=== PATIENT | female | born 2005 | race Caucasian/White ===

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

== ENCOUNTER 2025-01-14 13:20 | Emergency (ER) | payer OTHER, SELFPAY ==
--- NOTE | ~2025-01-14 | XR_ITS ---
CLINICAL HISTORY: sob, chest pain Two views of the chest. COMPARISON: XR chest dated 11/09/24 at 17:46 EST FINDINGS: Normal heart and mediastinal contours. No consolidation. No pleural effusion or pneumothorax. No fracture identified. Mild apex left curvature of the midthoracic spine. IMPRESSION: 1. No consolidation. This document has been electronically signed by: Eebr Bae MD on 01/14/2025 14:12:32
--- NOTE | 2025-01-14 13:33 | ED_ITS ---
HPI - SOB/Dyspnea General Chief Complaint: Dizziness Stated Complaint: sob, headache Time Seen by Provider: 01/14/25 13:39 Source: patient Mode of arrival: ambulatory Limitations: no limitations History of Present Illness ED Provider: Gifty Alvarado PA-C HPI Narrative: Patient is a 19 year old female with no known past medical history who presents to the ER with complaints of shortness of breath, chest pain, and syncope. She states that 2 days ago she was lying in bed when she began experiencing sudden onset difficulty breathing and chest pain shortly after. She states the chest pain is left sided, sharp, worse within inspiration, and nonradiating. She states that yesterday her friend witnessed her pass out at home while seated but she does not recall this. States she feels lightheaded upon standing. She also endorses some abdominal discomfort with multiple episodes of vomiting and an inability to keep down food. She denies fevers, cough, dysuria, hematuria, diarrhea, constipation. MD elicited complaint: shortness of breath and chest pain Onset (ago): day(s) Timing: constant Relieving factors: nothing Associated symptoms: chest pain, nausea/vomiting and lightheadedness Related Data Allergies Allergy/AdvReac Type Severity Reaction Status Date / Time No Known Allergies Allergy Verified 01/14/25 13:37 Review of Systems Constitutional: Constitutional: Reports no additional constitutional complaints, Denies chills, Denies fever(s) and Denies night sweats Eyes: Eyes: Reports no additional eye complaints, Denies blurry vision, Denies change in vision, Denies diplopia, Denies eye discharge, Denies loss of vision and Denies eye pain ENT: Reports dizziness Cardiovascular: Cardiovascular: Reports no additional cardiovascular complaints, Reports chest pain, Reports syncope (yesterday), Reports lightheadedness and Reports dyspnea Respiratory: Respiratory: Reports no additional respiratory complaints and Reports dyspnea Gastrointestinal: Gastrointestinal: Reports no additional gastrointestinal complaints, Denies abdominal pain, Denies melena, Denies hematochezia, Denies change in bowel habits and Denies change in stool character Genitourinary: Genitourinary: Denies hematuria, Denies urinary frequency, Denies dysuria, Denies urinary incontinence, Denies urinary hesitancy and Denies urinary urgency Musculoskeletal: Musculoskeletal: Reports no additional musculoskeletal complaints, Denies numbness and Denies tingling Neurologic: Reports dizziness, Reports syncope (yesterday), Denies loss of vision, Denies numbness and Denies tingling Psychiatric: Psychiatric: Reports no additional psychiatric complaints Endocrine: Endocrine: Reports no additional endocrine complaints Hematologic/Lymphatic: Hematologic/Lymphatic: Reports no additional hematologic/lymphatic complaints Allergic/Immunologic: Allergic/Immunologic: Reports no additional allergic/immunologic complaints PMFSH Past Medical History Attestation statement: The following information was validated with the patient. Source: old records reviewed and nursing notes reviewed Social History Social History Advance Directives: No Advance Directives Information Provided: Yes Physical Exam 2 Vital Signs: Vital Signs: Last Vital Signs Temp 98.2 F 01/14/25 14:29 Pulse 74 01/14/25 14:29 Resp 16 01/14/25 14:29 BP 116/80 01/14/25 14:29 Pulse Ox 98 01/14/25 14:29 O2 Del Method Room Air 01/14/25 14:29 BMI result Body Mass Index 19.9 Const: General: cooperative, no acute distress, alert and awake Nutritional Appearance: well nourished Orientation/consciousness: patient oriented x3 Limitations: no limitations HEENT: Head: Yes normal to inspection and Yes atraumatic Ears: hearing grossly normal bilaterally and external ears normal General nose exam: Normal external nose present, no nasal discharge noted and no epistaxis Face and sinus: Yes normal facial exam, No abrasion and No laceration Mouth: Normal oral and palatal mucosa present, no drooling and no muffled voice Eyes: General: appearance normal, both eyes and all related structures Periorbital: periorbital findings normal Eyelids: Yes eyelids normal Conjunctivae: conjunctivae normal Pupils: Equal, round and reactive pupils present EOM: EOMs intact bilaterally Neck: Neck: Yes normal visual inspection, Yes full ROM and Yes no lymphadenopathy Chest: Chest palpation & inspection: normal inspection of the chest Resp: Effort & Inspection: normal respiratory effort and able to speak in complete sentences Auscultation: clear to auscultation bilaterally Cardio: Heart sounds: S1 abnormal, S2 abnormal, no gallops, Murmur heart sound present and no rubs GI: Inspection: Yes normal to inspection Neuro: General: patient oriented x3, moves all extremities and CN's II-XI intact bilaterally Cranial nerves: Yes Equal, round and reactive pupils present Cognition (Neuro): normal cognition Extrem: General: Yes normal to inspection, Yes full ROM and Yes capillary refill normal Psych: Appearance: grossly normal Mental Status: mental status grossly normal Affect: normal affect Attitude: cooperative Thought process: Normal thought process present Thought content: Normal thought content present Insight: Good insight present (Psych) Course Course Course Narrative: This is a Rapid Medical Examination (RME) performed by Ramona Kaur PA-C in triage. Full HPI, ROS, assessment and treatment plan per primary provider in the Main ED. 19 yo female with no medical history presents to the ER for evaluation of SOB for the last 2 days. She reports dizziness and fainting episode while sitting yesterday yesterday. Poor PO intake with recurrent vomiting. Reports left sided sharp chest pain which is constant and nonradiating. tachycardic low 100s in triage, lungs are CTAB. Plan: CXR, EKG, labs, viral swab, orthostatic VS. additional workup as needed per primary provider Medical Decision Making Medical Decision Making MDM Narrative: Patient is a 19 year old assigned female at with no reported medical history presenting to the emergency department today with chest pain, shortness of breath, and possible syncopal episode. Patient's physical exam was as noted in the physical exam portion of this note. Patient's EKG was unremarkable. Patient's chest x-ray showed no acute process. Patient abruptly decided to leave the department against medical advice. Patient stated that she no longer wanted to be in the department and wants to leave. Patient states that she does not want her blood drawn and does not want any additional testing or treatment. I explained to the patient that I recommend she stay to receive IV fluids and have a CBC and CMP done. Patient declined, requesting to leave. I explained to the patient that leaving against medical advice could result in permanent disability, a decrease in quality of life, , stoke, heart attack, etc. Patient verbalized understanding and stated that she would like to leave against medical advice. Patient declined to wait for the AMA form to sign. Differential Diagnosis Differential Diagnoses: The differential diagnosis associated with the presentation includes Orthostatic hypotension Dizziness NSTEMI STEMI Admission/Observation Consideration of admission/observation: Escalation of care including admission/observation considered Patient may have been admitted to the hospital if her work up was consistent with a reason for admission and she had not left against medical advice. Independent Interpretation I performed an independent interpretation of an: EKG and Plain X-Ray Interpretation: My interpretation is in agreement with the radiologist's impression of this imaging study. CLINICAL HISTORY: sob, chest pain Two views of the chest. COMPARISON: XR chest dated 11/09/24 at 17:46 EST FINDINGS: Normal heart and mediastinal contours. No consolidation. No pleural effusion or pneumothorax. No fracture identified. Mild apex left curvature of the midthoracic spine. IMPRESSION: 1. No consolidation. This document has been electronically signed by: Eber Bae MD on 01/14/2025 14:12:32 Dictated By: Eber Bae MD Signed By: Electronically signed by Eber Bae MD 01/14/25 1413 I independently interpreted this EKG and am in agreement with the below findings: Vent. Rat:e 88 BPM Atrial Rate: 88 BPM P-R Int: 128 ms QRS Dur: 80 ms QT Int: 338 ms P-R-T Axes: 41 77 66 degrees QTcB Int: 408 ms Normal sinus rhythm with sinus arrhythmia Normal ECG When compared with ECG of 09-Nov-2024 15:06, No significant change was found DD/ [id number] Radiology Impression Discussion of test interpretation with radiology: I have reviewed the radiologist's reading. Discharge Plan Discharge Clinical Impression: Chest pain, Shortness of breath Patient Disposition: Left Against Medical Advice Stand Alone Forms: Against Medical Advice Interventions: ED Discharge Assessment Last Done: 01/14/25 14:29 Discharge Date/Time: 01/14/25 14:30 Print Language: Yoruba
[2025-01-14 13:34] VITALS: BP 121/86; PULSE 107; RESP 16; TEMP 37.3; O2SAT 99; BMI 19.9
--- NOTE | 2025-01-14 13:35 | ECG_ITS ---
Test Reason : syncope, chest pain Blood Pressure : */* mmHG Vent. Rate : 88 BPM Atrial Rate : 88 BPM P-R Int : 128 ms QRS Dur : 80 ms QT Int : 338 ms P-R-T Axes : 41 77 66 degrees QTcB Int : 408 ms Normal sinus rhythm with sinus arrhythmia Normal ECG When compared with ECG of 09-Nov-2024 15:06, No significant change was found Referred By: Cecy Kaur Electronically Signed By: Vladimir Dasilva
[2025-01-14 14:16] VITALS: BP 116/80; PULSE 74; RESP 16; TEMP 36.8; O2SAT 98
[2025-01-14 14:29] VITALS: BP 116/80; PULSE 74; RESP 16; TEMP 36.8; O2SAT 98
== END 2025-01-14 14:30 | disposition left against medical advice (07) ==
PROVIDERS: Emergency Provider Emergency Medicine
DX: R07.9 Chest pain, unspecified (principal); R06.02 Shortness of breath; R11.2 Nausea with vomiting, unspecified; R42 Dizziness and giddiness; Z53.29 Procedure and treatment not carried out because of patient's decision for other reasons
CPT/HCPCS: 71046; 93005; 99283; 99284

== ENCOUNTER → 2025-01-14 13:35 | Outpatient (BNV) | payer OTHER, SELFPAY | PROVIDERS: Emergency Provider Emergency Medicine; Visit Provider Radiology Diagnostic Radiology | DX: R06.02 Shortness of breath (principal); R07.9 Chest pain, unspecified | CPT/HCPCS: 71046 ==

== ENCOUNTER → 2025-01-14 13:35 | Outpatient (BNV) | payer OTHER, SELFPAY | PROVIDERS: Emergency Provider Emergency Medicine; Visit Provider Internal Medicine Cardiovascular Disease | DX: R07.9 Chest pain, unspecified (principal); R55 Syncope and collapse | CPT/HCPCS: 93010 ==

== ENCOUNTER 2025-09-11 15:16 | Inpatient (IN) | payer OTHER, SELFPAY ==
--- NOTE | ~2025-09-11 | CT_ITS ---
EXAMINATION: CT HEAD WITHOUT CONTRAST CLINICAL INFORMATION: found on ground COMPARISON: None available. TECHNIQUE: Contiguous axial imaging was performed from the skull base to vertex without intravenous administration of contrast. This CT examination was performed using dose optimization techniques as appropriate, variously including the following: *Automated exposure control *Adjustment of mA and/or kV according to patient size (this includes techniques or standardized protocols for targeted exams where dose is matched to indication/reason for exam; i.e. extremities or head) *Use of iterative reconstruction technique FINDINGS: There is no acute ischemic change. There is no intracranial hemorrhage. There is no mass-effect or midline shift. Basal cisterns and ventricles are within normal limits for age/cerebral volume. Orbits are symmetrical and unremarkable. Paranasal sinuses and mastoid air cells are pneumatized. There are no bony abnormalities. CT/CT head/brain wo IV con IMPRESSION: No acute intracranial abnormality. Electronically signed by: Dirk Ibarra MD 09/11/2025 05:09 PM [facility]
[2025-09-11 15:12] VITALS: BP 137/88; PULSE 111; O2SAT 98
[2025-09-11 15:19] VITALS: BP 120/68; PULSE 78; RESP 15; O2SAT 100; BMI 19.5
--- NOTE | 2025-09-11 15:36 | ECG_ITS ---
Test Reason : overdose Blood Pressure : */* mmHG Vent. Rate : 93 BPM Atrial Rate : 93 BPM P-R Int : 114 ms QRS Dur : 70 ms QT Int : 336 ms P-R-T Axes : 14 76 59 degrees QTcB Int : 417 ms Normal sinus rhythm Normal ECG When compared with ECG of 14-Jan-2025 13:46, No significant change was found Referred By: Eduarda Coy Electronically Signed By: MIRTA GATICA MD
[2025-09-11 16:20] LABS: MANUAL DIFF FLAG NO
[2025-09-11 16:21] LABS: Hematocrit 36.9 % (37.0-47.0); Hemoglobin 12.6 g/dl (12.0-16.0); Imm Gran Abs Auto 0.03 X10*3/uL (0.00-0.03); Imm Gran Pct Auto 0.3 % (0.0-0.4); Lymphocytes Absolute Auto 0.9 X10*3/uL (1.2-4.9); Mean Corpuscular HGB Conc 34.1 g/dl (31.0-35.0); Mean Corpuscular Hemoglobin 28.4 pg (27.0-33.0); Mean Corpuscular Volume 83.1 fL (80.0-98.0); NRBC Abs Auto 0.000 X10*3/uL (0.0-0.012); NRBC Pct Auto 0.0 /100WBC (0.0-0.2); Platelet Count 280 X10*3/uL (160-400); Red Blood Count 4.44 X10*6/uL (4.20-5.50); White Blood Count 11.9 X10*3/uL (4.8-10.8)
[2025-09-11 16:39] LABS: Acetaminophen LAB 3 mcg/mL (<30); Salicylate < 5.0 mg/dL (15-30)
[2025-09-11 16:48] LABS: Alanine Aminotransferase 16 U/L (0-31); Albumin Level 5.4 g/dL (3.5-5.0); Alkaline Phosphatase 52 U/L (39-117); Anion Gap 16 (12-20); Aspartate Amino Transferase 22 U/L (5-31); Blood Urea Nitrogen 18 mg/dL (9-16); Calcium 9.9 mg/dL (8.4-10.2); Carbon Dioxide 21 mmol/L (22-29); Chloride 106 mmol/L (96-108); Creatinine Clr Calc Pharmacy 78.5; Estimated Glomerular Filt Rate > 60; Lipase 17 U/L (8-78); Magnesium 1.8 mg/dL (1.6-2.6); Potassium 3.6 mmol/L (3.3-5.1); Sodium 139 mmol/L (135-145); Total Protein 7.9 g/dL (6.5-8.0)
--- NOTE | 2025-09-11 17:05 | ED.OVERDOSE ---
HPI - Overdose General Chief Complaint: Overdose Stated Complaint: S12,OD S/P RECENT BREAKUP W/BF,NARCAN GIVEN Time Seen by Provider: 09/11/25 15:24 Source: patient Mode of arrival: ambulatory Limitations: no limitations History of Present Illness ED Provider: СВЕТЛАНА VALLE PA-C HPI Narrative: 20 year old female BIBA for concerns of overdose. Per EMS, patient's mother found her slumped over on the bathroom floor at home this afternoon with a suicide note lying beside her. On arrival, patient somnolent however responsive to verbal stimuli. When asked if she was attempting to end her life, she states yes, due to a recent break up. Endorses history of similar attempts at her life. When asked what medications she took, she tells me she is unsure. Took medications out of the medicine cabinet at home. On chart review, it does not appear that she is prescribed any medications. She lives with her mother. I spoke with her mother, Nicci, who states she found an empty bottle of aspirin last night. She states there were only 5-6 tabs of 81mg aspirin left in the bottle. She threw the bottle away and did not think anything of it. She states the other medication in the cabinet at home include tylenol, tylenol PM, generic pain control , and melatonin. She has not noticed any of these medications missing. Patient is not particularly willing to participate in history. She received a total of 8 mg IV narcan en route to ED. Related Data Home Medications ?Medication ?Instructions ?Recorded ?Confirmed No Known Home Meds 09/11/25 09/11/25 Allergies Allergy/AdvReac Type Severity Reaction Status Date / Time No Known Allergies Allergy Verified 09/11/25 15:23 Review of Systems Review of Systems: Yes all other systems are reviewed and are negative PMFSH Past Medical History Attestation statement: The following information was validated with the patient. Source: old records reviewed and nursing notes reviewed Social History Social History Advance Directives: No Advance Directives Information Provided: No Do you have a plan to hurt others: No Plan Patient : No Physical Exam Vital Signs: Vital Signs: Last Vital Signs Temp 97.2 F 09/12/25 14:27 Pulse 85 09/12/25 14:27 Resp 16 09/12/25 14:27 BP 124/68 09/12/25 14:27 Pulse Ox 99 09/12/25 14:27 O2 Del Method Room Air 09/12/25 14:27 BMI result Body Mass Index 19.5 vital signs stable General: somnolent, responsive to verbal stimuli Skin: Warm, dry, intact. No rashes or lesions. Head: Normocephalic, atraumatic. no palpable skull fractures, hematoma. EENT: Hearing is intact b/l. Conjunctiva clear. pupils dilated b/l, equal, round, reactive to light. EOM intact. Moist mucous membranes.? Neck: Supple without LAD Cardiac: Chest wall symmetric. RRR Lungs: Normal respiratory effort without accessory muscle use. CTA bilaterally Abdomen: Soft, non-tender, non-distended. No rebound tenderness or guarding. Positive BS x4. Back: No midline spinous or paraspinal tenderness. No step off deformity. Ext: Upper and lower extremities atraumatic, without tenderness, deformity, swelling or erythema Neuro: AOx3. CN 2-12 grossly intact. Course Course Course Narrative: CBC showing slight leukocytosis to 11.9 with left shift. likely reactive. h&h stable. chemistry without acute electrolyte abnormality requiring intervention. no felicitas. random glucose 118, no anion gap. total bilirubin 2.3, priors elevated as well (1.8). all other liver enzymes wnl. her abdominal exam is benign, no vomiting. beta quant undetectable. Salicylates, acetaminophen, ethanol undetectable. CT head without intracranial abnormality. EKG showing normal sinus rhythm, no QT prolongation. > UA/UDS pending > pending CARE team consultation > vitals stable at this time. patient is lying in bed comfortably, her mom/dad/sibling are at bedside speaking with her. Reevaluation(s) Reevaluation #1: Time: 08:29 Date: 09/12/25 Provider: Taras Aquino, DO Patient in physician observation for psychiatric evaluation.? No acute events reported overnight. No current complaints. VS stable.? pending CARE team evaluation. Will continue to monitor. Medical Decision Making Medical Decision Making MDM Narrative: 20 year old female BIBA for concerns of overdose. Differential diagnosis includes anemia, electrolyte abnormality, mood disorder, anxiety, depression, SI, polysubstance abuse, overdose Presentation not consistent with acute organic causes to include delirium, dementia or drug induced disorders (acute ingestions or withdrawal; no evidence of toxidrome).? Plan: labs, EKG, ASA/APAP levels, ETOH level, UDS, care team consultation, reassessment Differential Diagnosis Differential Diagnoses: The differential diagnosis associated with the presentation includes as above. Admission/Observation Consideration of admission/observation: Escalation of care including admission/observation considered Lab Data MDM Lab Attestation statement: I reviewed the patient's lab results. as above. 09/11/25 16:16 09/11/25 16:16 Labs: Lab Results 09/11/25 09/11/25 Range/Units 16:16 18:07 WBC 11.9 H (4.8-10.8) X10*3/uL RBC 4.44 (4.20-5.50) X10*6/uL Hgb 12.6 (12.0-16.0) g/dl Hct 36.9 L (37.0-47.0) % MCV 83.1 (80.0-98.0) fL MCH 28.4 (27.0-33.0) pg MCHC 34.1 (31.0-35.0) g/dl RDW 13.0 (11.0-16.0) % Plt Count 280 (160-400) X10*3/uL MPV 9.5 (9.4-12.3) fL Immature Gran % (Auto) 0.3 (0.0-0.4) % Neut % (Auto) 89.0 H (45-73) % Lymph % (Auto) 7.6 L (20-40) % Anson % (Auto) 2.7 (2-11) % Eos % (Auto) 0.1 (0-4) % Baso % (Auto) 0.3 (0-2) % Lymph # (Auto) 0.9 L (1.2-4.9) X10*3/uL Anson # (Auto) 0.3 (0.1-1.2) X10*3/uL Eos # (Auto) 0.0 (0.0-0.4) X10*3/uL Baso # (Auto) 0.0 (0.0-0.2) X10*3/uL Abs Immat Gran (auto) 0.03 (0.00-0.03) X10*3/uL Absolute Neuts (auto) 10.6 H (2.0-8.3) x10*3/uL Absolute Nucleated RBC 0.000 (0.0-0.012) X10*3/uL Nucleated RBC % (auto) 0.0 (0.0-0.2) /100WBC Sodium 139 (135-145) mmol/L Potassium 3.6 (3.3-5.1) mmol/L Chloride 106 (96-108) mmol/L Carbon Dioxide 21 L (22-29) mmol/L Anion Gap 16 (12-20) BUN 18 H (9-16) mg/dL Creatinine 0.90 (0.5-1.4) mg/dL Estim Creat Clear Calc 78.5 Estimated GFR > 60 Random Glucose 118 H (60-115) mg/dL Calcium 9.9 (8.4-10.2) mg/dL Magnesium 1.8 (1.6-2.6) mg/dL Total Bilirubin 2.3 H (0.0-1.0) mg/dL AST 22 (5-31) U/L ALT 16 (0-31) U/L Alkaline Phosphatase 52 (39-117) U/L Total Creatine Kinase 108 (26-140) U/L Total Protein 7.9 (6.5-8.0) g/dL Albumin 5.4 H (3.5-5.0) g/dL Lipase 17 (8-78) U/L Beta HCG, Quant < 2 mIU/mL Urine Color Yellow Urine Appearance Clear Urine pH 5.5 (5.0-9.0) Ur Specific [place] 1.020 (1.005-1.025) Urine Protein 30 (1+) H (Neg-Trace) mg/dL Urine Glucose (UA) Negative (Negative) mg/dL Urine Ketones 80 (Negative) mg/dL Urine Blood Trace H (Negative) Urine Nitrite Negative (Negative) Ur Leukocyte Esterase Negative (Negative) Urine RBC 0-2 (0-2) /HPF Urine WBC 6-10 H (0-5) /HPF Ur Squamous Epith Cells 11-20 (0-2) /HPF Urine Bacteria 3+ (None Seen) Hyaline Casts 0-2 (0-2) /LPF Salicylates < 5.0 L (15-30) mg/dL Urine Opiates Screen Not Detected (Not Detect) Ur Buprenorphine Scrn Not Detected (Not Detect) ng/mL Ur Oxycodone Screen Not Detected (Not Detect) ng/mL Urine Methadone Screen Not Detected (Not Detect) ng/mL Urine Fentanyl Screen Not Detected (Not Detect) Acetaminophen 3 (<30) mcg/mL Ur Barbiturates Screen Not Detected (Not Detect) Ur Phencyclidine Scrn Not Detected (Not Detect) Ur Amphetamines Screen Not Detected (Not Detect) U Benzodiazepines Scrn Not Detected (Not Detect) Urine Cocaine Screen Not Detected (Not Detect) U Marijuana (THC) Screen POSITIVE H (Not Detect) Ethyl Alcohol < 10 mg/dL Independent Interpretation I performed an independent interpretation of an: EKG Interpretation: EKG showing normal sinus rhythm, rate of 93 beats per minute, QT 336, QTC 417, no acute ischemic changes or st elevations Independent Historian Clinical information obtained from an independent historian. History obtained from or confirmed by: Parent and EMS Social Determinants Patient?s care significantly limited by Social Determinants of Health including: Other Social Determinant of Health Critical Care Time Critical Care Time Critical Care Time: No Discharge Plan Discharge Clinical Impression: Suicidal ideation, Suicide attempt, Intentional drug overdose Patient Disposition: Admitted As Inpatient Interventions: Admission Worksheet (ED) Last Done: 09/12/25 12:50 Discharge Date/Time: 09/12/25 12:51
--- OUTSIDE RECORDS SUMMARY | 2025-09-11 17:19 | XMS_ITS | Clinical Summary ---
Author Organization [facility] Address [address] [place] [address] Phone Care Team Providers Care Concrete Pavement Installer Name Role Phone Unavailable Primary Care Provider Unavailabl e Allergies Active Allergy Reactions Criticality Noted Date Comments Fluoride Rash Low 08/04/2022 Mild/moderate Medications No known medications Active Problems Problem Noted Date Diagnosed Date Oral contraceptive use 02/14/2024 Assessment & Plan (02/14/2024 2:34 PM EDT): Recently started OCP- not sure which one Rx'd through [facility] Attention deficit hyperactiv ity disorder (ADHD), predominantly inattentive type 08/04/2022 Overview (08/04/2022): Previously took Concerta Assessment & Plan (02/14/2024 2:34 PM EDT): No medications Assessment & Plan (02/09/2023 4:36 PM EDT): Managing without medication Immunizations Immunization Administration Dates Next Due COVID-19 shanel Weir, 12+ years 07/04/2021,06/13/2021 DTaP 2005,2005 HPV Vaccine 9 Valent 06/02/2017,10/08/2016 Hep A, ped/adol 10/09/2008,06/03/2007 Hep B, ped/adol 2005, 5,2005,05/03 HiB 07/28/2006, 6,2005,07/07 IPV 07/17/2009,200 6,2005,07/07 Influenza, injectable,hadley valent, preservative free, pediatric 10/13/2021,10/08/2016,09/26/2014,10/07,08/27/2009,07/17/2009 MMR 07/17/2009,07/28/2006 Meningococcal Conj (Menactra) MCV4P 10/08/2016 Meningococcal Conj (Menquadfi) MCV4TT 02/09/2023 Pneumococcal Conjugate 13-Valent 006,2005,2005,07/07 Tdap 10/08/2016 Varicella 07/17/2009,07/28/2006 Family History Medical History Relation Name Comments Hyperlipidemia Father Chirag Hypertension Maternal Grandmother No Known Problems Mother Pardeep No Known Problems Paternal Grandmother Relation Name Status Comments Father Chirag Alive Maternal Grandfather Maternal Grandmother Alive Mother Evelym Alive Paternal Grandmother Alive Social History Tobacco Use Types Packs/Day Years Used Date Smoking Tobacco: Never Assessed Hunger/Food Answer Date Recorded In the last 12 months, did y ou or your family ever eat less than you felt you should because there wasn't enough money for food? No 02/14/2024 Stable Housing Answer Date Recorded Are you worried that in the next 2 months you may not have stable housing? No 02/14/2024 Transportation Concerns Answer Date Rec orded In the last 12 months, have you or your family ever had to go without healthcare because you didn't have a way to get there? No 02/14/2024 Hazards in Home Answer Date Recorded Think about the place you li ve. Do you have problems with any of the following? Pests (mice or roaches), mold, no/not working smoke detectors, water leaks, no window guards. No 2023 Financing Utilities Answer Date Recorde d In the last 12 months, has t he electric, gas, oil, or water company threatened to shut off your services in your home? No 02/14/2024 Safety at Home Answer Date Recorded Are you or your family worried about feeling saf e in your home? No 02/14/2024 Outside Support Answer Date Recorded Do you feel that you need mo re support from other people or programs to help you care for yourself or your family? No 02/14/2024 Understanding Health Concerns Answer Da te Recorded Do you need help understandi ng your or your child's healthcare needs (diagnosis, medications, plan, etc.)? No 02/14/2024 Financing Health Concerns Answer Date R ecorded In the last 12 months, was t here a time when your child needed to see a doctor or get medications or supplies but could not because of cost? No 02/14/2024 Missing School or Work Answer Date Soren rded Did you or your child miss s chool or work because of a health problem that could have been avoided? No 02/14/2024 Child Education Answer Date Recorded Do you have concerns about y our/your child's learning or behavior in school, preschool, or daycare? No 02/14/2024 Comments No Sex and Gender Information Value Date Recorded Sex Assigned at Not on file Legal Sex Female 3:41 PM EDT Gender Identity Female 09/06/2024 9:17 AM EST Sexual Orientation Not on file Last Filed Vital Signs Vital Sign Reading Time Taken Comments Blood Pressure 102/64 02/14/2024 2:05 PM EDT Pulse 78 02/14/2024 2:05 PM EDT Temperature 37.5 C (99.5 F) 02/14/2024 2:05 PM EDT Respiratory Rate - - Oxygen Saturation - - Inhaled Oxygen Concentration - - Weight 49 kg (108 lb) 02/14/2024 2:05 PM EDT Height 154.5 cm (5' 0.83 ) 02/14/2024 2:05 PM ED T Body Mass Index 20.52 02/14/2024 2:05 PM EDT Plan of Treatment Health Maintenance Due Date Last Done Comments Men B Vaccine (1 of 2 - Standard) 2021 Influenza Vaccines (#1) 2025 10/13/20 21, 10/08/2016, 09/26/2014, Additional history exists COVID-19 Vaccine (3 - 2024-2 6 season) 2025 07/04/2021, 06/13/2021 DTaP,Tdap,and Td Vaccines (4 - Td or Tdap) 10/08/2026 10/08/2016, 2005, 2005 Hepatitis B Vaccines Completed 2005, 2005, 2005, Additional history exists HIB Vaccines Completed 07/28/2006, 12/2005, 2005, Additional history exists Pneumococcal Vaccine Completed 07/28/2006, 2005, 2005, Additional history exists Hepatitis A Vaccines Completed 10/09/2008, 06/03/20 07 IPV Vaccines Completed 07/17/2009, 12/2005, 2005, Additional history exists MMR Vaccines Completed 07/17/2009, 07/28/2006 Varicella Vaccines Completed 07/17/2009, 07/28/2006 HPV Vaccines Completed 06/02/2017, 10/08/2016 Meningococcal Vaccine Completed 02/09/2023, 016 Procedures * Due to [place] law, this organization might not be sharing sensitive test results. Procedure Name Priority Date/Time Associated Diagnosis Comments CHLAMYDIA GC AMP PROBE Routine 02/09/2023 4:03 PM EDT Encounter for screening examination for sexually transmitted disease from Last 3 Months or Most Recently Relevant to Health Maintenance Results * Due to [place] law, this organization might not be sharing sensitive test results. * Chlamydia and Gonorrhoea, Amplified (Vagina) (02/09/2023 4:03 PM EDT) Chlamydia Trachomatis, Amplified NEGATIVE (NEG) [facility] Comment: No Chlamydia Trachomatis RNA detected in this patient's sample (REFERENCE RANGE/NORMAL VALUE: NOT DETECTED) Note: This test uses sanitation technician- mediated amplification method to detect rRNA from C. Trachomatis N.GONORRHOEAE AMP PROBE NEGATIVE (NEG) [facility] Comment: No Neisseria Gonorrhoeae RNA detected in this patient's sample (REFERENCE RANGE/NORMAL VALUE: NOT DETECTED) NOTE: This test uses sanitation technician-mediated amplification method to detect rRNA from N.Gonorrhoeae. A negative result does not preclude infection. In the case of a negative urine result, testing of an endocervical(female) or urethral (male) specimen is recommended if there is high clinical suspicion of infection. Due to very high sensitivity of Nucleic Acid Amplification Test, false positive results may occur. Therefore, specimen handling is extremely important. In patients in whom the disease is unlikely, additional sample for testing should be considered after an initial positive result. The performance characteristics of this test have not been evaluated in children. The Aptima Combo2 assay is not intended for the evaluation of suspected sexual abuse or for other medico-legal indications. The ordering provider should assess if the patient had consensual sex without risk of sexual abuse. Consult the [facility] if needed. Contact phone number . Therapeutic failure or success cannot be determined with the Aptima Combo2 assay since nucleic acid may persist following appropriate antimicrobial therapy. The Centers for Disease Control and Prevention (CDC) recommends confirmatory retesting using culture or a different nucleic acid amplification test when positive results occur, if indicated. CHLAM/GC AMP PROBE SPEC TYPE CERVIX [facility] Comment: Testing performed or reported by [facility], a Service of [facility], [facility] [address], [place] [address] Austyn Espinoza MD, Supervisor Title [facility]# [id number] Swab (Vagina) 02/09/2023 4:0 3 PM EDT 02/09/2023 10:43 PM EDT us Yovana Uriarte NP LAB MICROBIOLOGY - GENERAL ORDER JUDAH Final Result [facility] from Last 3 Months or Most Recently Relevant to Health Maintenance
[2025-09-11 18:15] LABS: Appearance Urine Clear; Glucose Urine UA Negative (Negative); PH 5.5 (5.0-9.0); Specific Gravity - Urine 1.020 (1.005-1.025); UMIC TRIGGER UACC YES
[2025-09-11 18:18] LABS: UACC Culture Trigger YES
[2025-09-11 18:34] VITALS: BP 112/62; PULSE 63; RESP 18; O2SAT 99
--- NOTE | 2025-09-11 19:25 | PC.NURSE ---
family at bedside to visit
[2025-09-11 20:24] LABS: Cannabinoid Screen Urine POSITIVE (Not Detect)
[2025-09-12 06:32] VITALS: BP 128/65; PULSE 60; RESP 15; TEMP 36.4; O2SAT 100
--- NOTE | 2025-09-12 06:39 | PC.NURSE ---
pt resting comfortably throughout the night, no apparent distress noted
--- NOTE | 2025-09-12 07:54 | PC.NURSE ---
Assumed care, report received. pt is currently sleeping, safety is maintained.
--- NOTE | 2025-09-12 10:19 | PHA.MEDREC ---
Addendum entered by Henna Ruiz RPh 09/12/25 10:29: MED REC REVIEWED BY [facility] Original Note: Pharmacy Consult ? Medication Reconciliation Pharmacy has reviewed the medication reconciliation done by nursing. No claim history.
[2025-09-12 14:27] VITALS: BP 124/68; PULSE 85; RESP 16; TEMP 36.2; O2SAT 99
[2025-09-12 14:28] VITALS: BMI 18.1
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
[2025-09-12 20:00] VITALS: BP 121/73; PULSE 72; RESP 16; TEMP 36.8; O2SAT 98
[2025-09-12] MEDS: Magnesium Hydrox/Alum Hydrox 30 ML ORAL.SUSP PO (20:37)
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
--- NOTE | 2025-09-13 08:37 | HO.PM.IMCN ---
History of Present Illness Data of Consult Service Date: 09/13/25 Primary Care Provider: Jean Ang MD [facility] Reason for consult: Medical consult 20-year-old female with past medical history of adjustment reaction, Depression, anxiety disorder, suicidal ideation and intentional drug overdose brought in by ambulance to this emergency room for concerns of an overdose after being found unresponsive in the bathroom. Patient reportedly attempted to end her life due to a recent break-up. patient had an intentional overdose of aspirin and cold medications. Her CBC demonstrated a slight leukocytosis, stable H&H, chemistry without acute electrolyte imbalances, no acute kidney injury, total bilirubin 2.3, previously elevated. All other liver enzymes within normal limits, negative test. CT head without any acute abnormality, EKG was normal without any QT prolongation. U tox positive for marijuana, no EtOH. on exam she denies any medical concerns. Reports that she is not eating well due to being a picky eater. Review of Systems Review of Systems: Denies any shortness of breath, chest pain, headaches, dysuria, abdominal pain or discomfort, nausea, vomiting or diarrhea. Denies fever or chills. [facility] Social History Household Members: Family Housing: House Do you presently have visiting nurse or other home services: No Patient Tobacco Use Status: Never used Tobacco Currently Displaying Signs/Symptoms of Drug Intoxication Withdrawal: No Have you been hit, kicked, punched, or otherwise hurt by someone within the past year? If so, by whom?: No Do you feel safe in your current relationship?: No Current Relationship Is there a partner from a previous relationship who is making you feel unsafe now?: No Are you made to feel afraid or neglected: No Spiritual Healthcare Practices: NONE Mu-Ism Healthcare Practices: NONE Cultural Healthcare Practices: NONE Advance Directives: No Advance Directives Information Provided: No Do you have thoughts of harming others: None Do you have a plan to hurt others: No Plan Recently lost weight without trying: No Nutrition Risks: No Nutritional Risk Patient : No : No Poor oral hygiene: No Meds Allergies Allergy/AdvReac Type Severity Reaction Status Date / Time No Known Allergies Allergy Verified 09/11/25 15:23 Active Medications: Current Medications Acetaminophen (Acetaminophen 325 Mg Tablet) 650 mg PO Q6H PRN PRN Reason: Headache/Pain, Scale 1-10 Last Admin: 09/12/25 20:37 Dose: 650 mg Al Hydroxide/Mg Hydroxide (Magnesium Hydrox/Alum Hydrox 30 Ml Oral.Susp) 30 ml PO Q6H PRN PRN Reason: Heartburn/Nausea Last Admin: 09/12/25 20:37 Dose: 30 ml Hydroxyzine HCl (Hydroxyzine Hcl 25 Mg Tablet) 25 mg PO Q6H PRN PRN Reason: mild anxiety Magnesium Hydroxide (Milk Of Magnesia 30 Ml Oral.Susp) 30 ml PO DAILY PRN PRN Reason: Constipation Nicotine Polacrilex (Nicotine Polacrilex 2 Mg Gum) 4 mg BUCCAL Q2H PRN PRN Reason: Nicotine Cravings Risperidone (Risperidone 0.5 Mg Tablet) 0.5 mg PO BID PRN PRN Reason: agitation Sertraline HCl (Sertraline Hcl 25 Mg Tablet) 25 mg PO DAILY NAOMI Trazodone HCl (Trazodone Hcl 50 Mg Tablet) 50 mg PO BEDTIME MRX1 PRN PRN Reason: Insomnia Last Admin: 09/12/25 20:37 Dose: 50 mg Home Medications ?Medication ?Instructions ?Recorded ?Confirmed ?Last Taken ?Type No Known Home Meds 09/11/25 09/11/25 Unknown History Physical Exam Vital Signs and Narrative: Vital Signs: Last Vital Signs Temp 98.3 F 09/12/25 20:00 Pulse 72 09/12/25 20:00 Resp 16 09/12/25 20:00 BP 121/73 09/12/25 20:00 Pulse Ox 98 09/12/25 20:00 O2 Del Method Room Air 09/12/25 20:00 BMI result Body Mass Index 18.1 Alert and oriented X3, quiet, calm and cooperative. Answers questions. Neuro: CN II-X11 intact, no deficits, visual acuity intact ENT: Hearing intact, MMM Cardiac: S1 S2 RRR, No ectopy Pulmonary: lungs clear to auscultation, No increased WOB. Abdominal: BS active in all 4 quadrants, no guarding or tenderness MSK: Strength 5/5 upper and lower extremities : Deferred Extremities: No edema in lower extremities Psych: Mood stable, Quiet and cooperative. Skin: Warm and dry, Intact Results Labs 09/11/25 16:16 09/11/25 16:16 Assessment and Plan (1) Intentional drug overdose: Status: Acute Plan 20-year-old female with past medical history listed below presented to the ED with intentional overdose. Now admitted inpatient for stabilization. Anxiety/adjustment reaction /suicide ideation/Depression/Anxiety Treatment per psychiatric team Thank you for allowing me to participate in the care of this patient. Will follow with you, please notify medical provider with any changes in condition or concerns.
[2025-09-13 09:05] VITALS: BP 98/58; PULSE 80; RESP 16; TEMP 36.6; O2SAT 98
--- NOTE | 2025-09-13 09:30 | P.PNPSI_ITS ---
Subjective Subjective Date of Service: 09/13/25 Reason For Visit: Depression, SI Subjective Notes: Section 12B Interim History: Chart reviewed, case discussed w/ team PRN use- trazodone 50 mg last night, acetaminophen, Maalox Slept 8 hrs per nursing report T/W met w/ pt in her room this am along with SW. Pt reported feeling okay, denies SI. Slept better. Denied med SE. Started sertraline 25 mg this am. She expressed interest in a therapy referral TW met with pt and her father during his visit, per his request (pt signed consent for me to communicate w/ her parents). He shared that it was quite traumatic to find her after the overdose and he had to do chest compression. He feels like pt is too focused on her friends and ex-bf and wants her focus on herself. Pt was silent and seemed to tune out during our conversation. Dad noted that she was tx'd for ADHD as a kid. Pt states that the meds made her tired and she doesn't want to take an ADHD med again. Dad would like to speak with t/w privately to discuss further concerns and t/w agreed to call him at 10 am tomorrow. Medication Compliance: Yes Mental Status Exam Mental Status Exam Narrative: Appearance: hospital [facility], grooming & hygiene wnl, good eye contact. Lying in position on her bed throughout interview Attitude:Cooperative Speech: Fluent and wnl in regard to volume, tone, prosody Motor activity: Calm and without any tics, tremors or dyskinesias. Mood: anxious about being here Affect: appropriate, reactive, superficially bright Thought process: goal directed and without evidence of formal thought disorder Thought content: denies current SI, regrets overdose. Denies violent ideation Perception: Denies AH/VH and does not appear to respond to internal stimuli Alert/oriented in all spheres Cognition grossly intact Insight: fair Judgment: impaired Diagnostics Vital Signs (24Hr): Vital Signs - 24 hr 09/12/25 14:27 09/12/25 20:00 09/13/25 09:05 Temperature 97.2 F 98.3 F 97.8 F Pulse Rate 85 72 80 Respiratory Rate 16 16 16 Blood Pressure 124/68 121/73 98/58 L Pulse Oximetry 99 98 98 Oxygen Delivery Method Room Air Room Air Room Air BMI result Body Mass Index 18.1 Labs 09/11/25 16:16 09/11/25 16:16 Labs: Laboratory Results - last 48 hr 09/11/25 09/11/25 16:16 18:07 WBC 11.9 H RBC 4.44 Hgb 12.6 Hct 36.9 L MCV 83.1 MCH 28.4 MCHC 34.1 RDW 13.0 Plt Count 280 MPV 9.5 Immature Gran % (Auto) 0.3 Neut % (Auto) 89.0 H Lymph % (Auto) 7.6 L [place] % (Auto) 2.7 Eos % (Auto) 0.1 Baso % (Auto) 0.3 Lymph # (Auto) 0.9 L [place] # (Auto) 0.3 Eos # (Auto) 0.0 Baso # (Auto) 0.0 Abs Immat Gran (auto) 0.03 Absolute Neuts (auto) 10.6 H Absolute Nucleated RBC 0.000 Nucleated RBC % (auto) 0.0 Sodium 139 Potassium 3.6 Chloride 106 Carbon Dioxide 21 L Anion Gap 16 BUN 18 H Creatinine 0.90 Estim Creat Clear Calc 78.5 Estimated GFR > 60 Random Glucose 118 H Calcium 9.9 Magnesium 1.8 Total Bilirubin 2.3 H AST 22 ALT 16 Alkaline Phosphatase 52 Total Creatine Kinase 108 Total Protein 7.9 Albumin 5.4 H Lipase 17 Beta HCG, Quant < 2 Urine Color Yellow Urine Appearance Clear Urine pH 5.5 Ur Specific [place] 1.020 Urine Protein 30 (1+) H Urine Glucose (UA) Negative Urine Ketones 80 Urine Blood Trace H Urine Nitrite Negative Ur Leukocyte Esterase Negative Urine RBC 0-2 Urine WBC 6-10 H Ur Squamous Epith Cells 11-20 Urine Bacteria 3+ Hyaline Casts 0-2 Salicylates < 5.0 L Urine Opiates Screen Not Detected Ur Buprenorphine Scrn Not Detected Ur Oxycodone Screen Not Detected Urine Methadone Screen Not Detected Urine Fentanyl Screen Not Detected Acetaminophen 3 Ur Barbiturates Screen Not Detected Ur Phencyclidine Scrn Not Detected Ur Amphetamines Screen Not Detected U Benzodiazepines Scrn Not Detected Urine Cocaine Screen Not Detected U Marijuana (THC) Screen POSITIVE H Ethyl Alcohol < 10 Imaging Radiology Impressions: ITS Impressions Head CT 09/11/25 16:57 IMPRESSION: No acute intracranial abnormality. Electronically signed by: Dirk Ibarra MD 09/11/2025 05:09 PM [facility] Medications Medications Current Medications Acetaminophen (Acetaminophen 325 Mg Tablet) 650 mg PO Q6H PRN PRN Reason: Headache/Pain, Scale 1-10 Last Admin: 09/12/25 20:37 Dose: 650 mg Al Hydroxide/Mg Hydroxide (Magnesium Hydrox/Alum Hydrox 30 Ml Oral.Susp) 30 ml PO Q6H PRN PRN Reason: Heartburn/Nausea Last Admin: 09/12/25 20:37 Dose: 30 ml Hydroxyzine HCl (Hydroxyzine Hcl 25 Mg Tablet) 25 mg PO Q6H PRN PRN Reason: mild anxiety Ibuprofen (Ibuprofen 600 Mg Tablet) 600 mg PO Q8H PRN PRN Reason: Headache/Pain, Scale 1-10 Magnesium Hydroxide (Milk Of Magnesia 30 Ml Oral.Susp) 30 ml PO DAILY PRN PRN Reason: Constipation Nicotine Polacrilex (Nicotine Polacrilex 2 Mg Gum) 4 mg BUCCAL Q2H PRN PRN Reason: Nicotine Cravings Risperidone (Risperidone 0.5 Mg Tablet) 0.5 mg PO BID PRN PRN Reason: agitation Sertraline HCl (Sertraline Hcl 25 Mg Tablet) 25 mg PO DAILY NAOMI Last Admin: 09/13/25 09:09 Dose: 25 mg Trazodone HCl (Trazodone Hcl 50 Mg Tablet) 50 mg PO BEDTIME MRX1 PRN PRN Reason: Insomnia Last Admin: 09/12/25 20:37 Dose: 50 mg Allergies Allergies Allergy/AdvReac Type Severity Reaction Status Date / Time No Known Allergies Allergy Verified 09/11/25 15:23 Assessment & Plan Assessment & Plan (1) 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 Shook is a 20 yo single F with h/o depression and anxiety who was BIBA following a suicide attempt by overdosing on an unknown quantity of aspirin and cold medication. Pt reports that this was precipitated by her bf breaking up with her and telling her he is seeing someone else. She denies current SI and regrets the attempt. She states that she doesn't want to be in the hospital and is admitted on a 12B. While she is here, pt would like to try medication to help with depression, anxiety and insomnia. Plan: Admitted to M3 for safety and stabilization Legal status- 12B 15 min safety checks Milieu therapy Vitals per unit standards Admission H&P from hospitalist pending Start- hydroxyzine 25 mg q 6 hrs prn for anxiety trazodone 50-100 mg qhs prn for insomnia sertraline 25 mg qd for tx of depression/anxiety. 09/13: Pt tolerated the sertraline and prn trazodone and sleep improved last night. She denies SI. ON 12B that will 09/17. T/W will call pt's dad at 10 am tomorrow to review his concerns further. Pt signed consent Patient educated on: diagnosis, medication risk/benefits and therapeutic strategies Reason for continued inpatient stay Substantial Risk for: med/psych decompensation Time Spent With Patient Time: Total time managing care of this patient today ____ minutes.
[2025-09-13 20:00] VITALS: BP 108/60; PULSE 74; RESP 16; TEMP 36.6; O2SAT 99
[2025-09-14 08:00] VITALS: BP 109/58; PULSE 65; RESP 14; TEMP 36.8; O2SAT 98
--- NOTE | 2025-09-14 10:06 | HO.PSYCHPN ---
Subjective Subjective Date of Service: 09/14/25 Reason For Visit: Depression, SI Interim History: Chart reviewed, case discussed with tx team T/W called pt's home number, spoke w/ her mom (dad had requested a phone call at 10 am). T/W informed pt's mom that pt would be d/c'd on Wednesday when 12B is up if no acute issues arise. she was accepting of the plan. She reports pt gets really down after break-ups. She stated that she and her were home when pt overdosed. Pt had the water running in the bathroom and mom thought she was in the shower. mom went to use the bathroom and noticed pt wasn't answering and she checked on her. Pt was unconscious and EMS and pt's parents called EMS. T/W informed pt's mom that pt has consistently expressed regret about the o/d and has denied SI. Discussed plan for dad to picker operator pt at 11 am Pt reports that she's feeling 'okay'. She states that she had just woken up when t/w met w/ her along w/ her dad yesterday, so she wasn't in the best state to engage in a family mtg. She is looking forward to d/c on Wednesday. Denies SI. Sleeping well. Denies med SE. Discussed previous ADHD tx. Pt notes that she is hyperactive and impulsive but she doesn't feel like it sigificantly interferes w/ her quality of life. She didn't like prior stimulant trials since they made her sedated. T/W informed her that she may have a better response to a different ADHD med if the ADHD sx become more bothersome to her in the future. She doesn't want to take anything now Medication Compliance: Yes Side effects from medications: No Attending Groups: Yes Mental Status Exam Mental Status Exam Narrative: Appearance: casually dressed, grooming & hygiene wnl, good eye contact. Attitude:Cooperative Speech: Fluent and wnl in regard to volume, tone, prosody Motor activity: Calm and without any tics, tremors or dyskinesias. Mood: 'okay' Affect: appropriate, reactive, brightens up appropriately Thought process: goal directed and without evidence of formal thought disorder Thought content: denies SI. no violent ideation reported Perception:does not appear to respond to internal stimuli Alert/oriented in all spheres Cognition grossly intact Insight: intact Judgment: fair Diagnostics Vital Signs (24Hr): Vital Signs - 24 hr 09/13/25 20:00 09/14/25 08:00 Temperature 97.9 F 98.3 F Pulse Rate 74 65 Respiratory Rate 16 14 Blood Pressure 108/60 109/58 L Pulse Oximetry 99 98 Oxygen Delivery Method Room Air Room Air BMI result Body Mass Index 18.1 Labs 09/11/25 16:16 09/11/25 16:16 Imaging Radiology Impressions: ITS Impressions Head CT 09/11/25 16:57 IMPRESSION: No acute intracranial abnormality. Electronically signed by: Dirk Ibarra MD 09/11/2025 05:09 PM [facility] [place] Medications Medications Current Medications Acetaminophen (Acetaminophen 325 Mg Tablet) 650 mg PO Q6H PRN PRN Reason: Headache/Pain, Scale 1-10 Last Admin: 09/12/25 20:37 Dose: 650 mg Al Hydroxide/Mg Hydroxide (Magnesium Hydrox/Alum Hydrox 30 Ml Oral.Susp) 30 ml PO Q6H PRN PRN Reason: Heartburn/Nausea Last Admin: 09/12/25 20:37 Dose: 30 ml Hydroxyzine HCl (Hydroxyzine Hcl 25 Mg Tablet) 25 mg PO Q6H PRN PRN Reason: mild anxiety Ibuprofen (Ibuprofen 600 Mg Tablet) 600 mg PO Q8H PRN PRN Reason: Headache/Pain, Scale 1-10 Last Admin: 09/13/25 09:58 Dose: 600 mg Magnesium Hydroxide (Milk Of Magnesia 30 Ml Oral.Susp) 30 ml PO DAILY PRN PRN Reason: Constipation Nicotine Polacrilex (Nicotine Polacrilex 2 Mg Gum) 4 mg BUCCAL Q2H PRN PRN Reason: Nicotine Cravings Risperidone (Risperidone 0.5 Mg Tablet) 0.5 mg PO BID PRN PRN Reason: agitation Sertraline HCl (Sertraline Hcl 25 Mg Tablet) 25 mg PO DAILY [facility] Last Admin: 09/14/25 08:30 Dose: 25 mg Trazodone HCl (Trazodone Hcl 50 Mg Tablet) 50 mg PO BEDTIME MRX1 PRN PRN Reason: Insomnia Last Admin: 09/13/25 23:22 Dose: 50 mg Allergies Allergies Allergy/AdvReac Type Severity Reaction Status Date / Time No Known Allergies Allergy Verified 09/11/25 15:23 Assessment & Plan Assessment & Plan (1) 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 Shook is a 20 yo single F with h/o depression and anxiety who was BIBA following a suicide attempt by overdosing on an unknown quantity of aspirin and cold medication. Pt reports that this was precipitated by her bf breaking up with her and telling her he is seeing someone else. She denies current SI and regrets the attempt. She states that she doesn't want to be in the hospital and is admitted on a 12B. While she is here, pt would like to try medication to help with depression, anxiety and insomnia. Plan: Admitted to M3 for safety and stabilization Legal status- 12B 15 min safety checks Milieu therapy Vitals per unit standards Admission H&P from hospitalist pending Start- hydroxyzine 25 mg q 6 hrs prn for anxiety trazodone 50-100 mg qhs prn for insomnia sertraline 25 mg qd for tx of depression/anxiety. 09/13: Pt tolerated the sertraline and prn trazodone and sleep improved last night. She denies SI. ON B that will 09/17. T/W will call pt's dad at 10 am tomorrow to review his concerns further. Pt signed consent 09/14: continue current tx plan. 12B expires Wednesday and will d/c Wednesday at 11 unless any acute safety concerns arise Reason for continued inpatient stay Substantial Risk for: med/psych decompensation Time Spent With Patient Time: Total time managing care of this patient today ____ minutes.
[2025-09-14 20:00] VITALS: BP 118/73; PULSE 78; RESP 16; TEMP 36.6; O2SAT 100
[2025-09-15 07:52] VITALS: BP 114/55; PULSE 70; RESP 18; TEMP 36.9; O2SAT 98
--- NOTE | 2025-09-15 09:19 | HO.PSYCHPN ---
Subjective Subjective Date of Service: 09/15/25 Reason For Visit: Depression, SI Interim History: Chart reviewed, case discussed Patient reports she is feeling well. Tolerating medications. She denies SI. She is visible on the milieu. Eating and sleeping well. Review of Systems Review of Systems Denies any shortness of breath, chest pain, headaches, dysuria, abdominal pain or discomfort, nausea, vomiting or diarrhea. Denies fever or chills. Yes all other systems are reviewed and are negative Mental Status Exam Mental Status Exam Narrative: Appearance: casually dressed, grooming & hygiene wnl, good eye contact. Attitude:Cooperative Speech: Fluent and wnl in regard to volume, tone, prosody Motor activity: Calm and without any tics, tremors or dyskinesias. Mood: 'okay' Affect: appropriate, reactive, brightens up appropriately Thought process: goal directed and without evidence of formal thought disorder Thought content: denies SI. no violent ideation reported Perception:does not appear to respond to internal stimuli Alert/oriented in all spheres Cognition grossly intact Insight: intact Judgment: fair Diagnostics Vital Signs (24Hr): Vital Signs - 24 hr 09/14/25 20:00 09/15/25 07:52 Temperature 98 F 98.4 F Pulse Rate 78 70 Respiratory Rate 16 18 Blood Pressure 118/73 114/55 L Pulse Oximetry 100 98 Oxygen Delivery Method Room Air Room Air BMI result Body Mass Index 18.1 Labs 09/11/25 16:16 09/11/25 16:16 Imaging Radiology Impressions: ITS Impressions Head CT 09/11/25 16:57 IMPRESSION: No acute intracranial abnormality. Electronically signed by: Dirk Ibarra MD 09/11/2025 05:09 PM [facility] [place] Medications Medications Current Medications Acetaminophen (Acetaminophen 325 Mg Tablet) 650 mg PO Q6H PRN PRN Reason: Headache/Pain, Scale 1-10 Last Admin: 09/12/25 20:37 Dose: 650 mg Al Hydroxide/Mg Hydroxide (Magnesium Hydrox/Alum Hydrox 30 Ml Oral.Susp) 30 ml PO Q6H PRN PRN Reason: Heartburn/Nausea Last Admin: 09/12/25 20:37 Dose: 30 ml Hydroxyzine HCl (Hydroxyzine Hcl 25 Mg Tablet) 25 mg PO Q6H PRN PRN Reason: mild anxiety Ibuprofen (Ibuprofen 600 Mg Tablet) 600 mg PO Q8H PRN PRN Reason: Headache/Pain, Scale 1-10 Last Admin: 09/13/25 09:58 Dose: 600 mg Magnesium Hydroxide (Milk Of Magnesia 30 Ml Oral.Susp) 30 ml PO DAILY PRN PRN Reason: Constipation Nicotine Polacrilex (Nicotine Polacrilex 2 Mg Gum) 4 mg BUCCAL Q2H PRN PRN Reason: Nicotine Cravings Risperidone (Risperidone 0.5 Mg Tablet) 0.5 mg PO BID PRN PRN Reason: agitation Sertraline HCl (Sertraline Hcl 25 Mg Tablet) 25 mg PO DAILY [facility] Last Admin: 09/15/25 08:48 Dose: 25 mg Trazodone HCl (Trazodone Hcl 50 Mg Tablet) 50 mg PO BEDTIME MRX1 PRN PRN Reason: Insomnia Last Admin: 09/14/25 22:47 Dose: 50 mg Allergies Allergies Allergy/AdvReac Type Severity Reaction Status Date / Time No Known Allergies Allergy Verified 09/11/25 15:23 Assessment & Plan Assessment & Plan (1) 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 Shook is a 20 yo single F with h/o depression and anxiety who was BIBA following a suicide attempt by overdosing on an unknown quantity of aspirin and cold medication. Pt reports that this was precipitated by her bf breaking up with her and telling her he is seeing someone else. She denies current SI and regrets the attempt. She states that she doesn't want to be in the hospital and is admitted on a 12B. While she is here, pt would like to try medication to help with depression, anxiety and insomnia. Plan: Admitted to M3 for safety and stabilization Legal status- 12B 15 min safety checks Milieu therapy Vitals per unit standards Admission H&P from hospitalist pending Start- hydroxyzine 25 mg q 6 hrs prn for anxiety trazodone 50-100 mg qhs prn for insomnia sertraline 25 mg qd for tx of depression/anxiety. 09/13: Pt tolerated the sertraline and prn trazodone and sleep improved last night. She denies SI. ON that will 09/17. T/W will call pt's dad at 10 am tomorrow to review his concerns further. Pt signed consent 09/14: continue current tx plan. 12B expires Wednesday and will d/c Wednesday at 11 unless any acute safety concerns arise 09/15: continue current management and treatment plan. Reason for continued inpatient stay Substantial Risk for: harm to self and rapid decompensation Time Spent With Patient Time: Total time managing care of this patient today ____ minutes.
[2025-09-15 20:00] VITALS: BP 112/68; PULSE 68; RESP 16; TEMP 36.6; O2SAT 98
[2025-09-16 08:00] VITALS: BP 105/60; PULSE 74; RESP 16; TEMP 36.3; O2SAT 98
--- NOTE | 2025-09-16 09:39 | P.PNPSI_ITS ---
Subjective Subjective Date of Service: 09/16/25 Reason For Visit: Depression, SI Interim History: Chart reviewed, case discussed Patient reports feeling the same . She at first said doesn't feel hospitalization helped but on reflection she says she isn't having SI and feels she will be able to handle the emotions of the break up better. Tolerating medications well. She is visible in the milieu. Section 12 expires tomorrow. Eating and sleeping well. Review of Systems Review of Systems Denies any shortness of breath, chest pain, headaches, dysuria, abdominal pain or discomfort, nausea, vomiting or diarrhea. Denies fever or chills. Yes all other systems are reviewed and are negative Mental Status Exam Mental Status Exam Narrative: Appearance: casually dressed, grooming & hygiene wnl, good eye contact. Attitude:Cooperative Speech: Fluent and wnl in regard to volume, tone, prosody Motor activity: Calm and without any tics, tremors or dyskinesias. Mood: 'okay' Affect: appropriate, reactive, brightens up appropriately Thought process: goal directed and without evidence of formal thought disorder Thought content: denies SI. no violent ideation reported Perception:does not appear to respond to internal stimuli Alert/oriented in all spheres Cognition grossly intact Insight: intact Judgment: fair Diagnostics Vital Signs (24Hr): Vital Signs - 24 hr 09/15/25 20:00 09/16/25 08:00 Temperature 97.9 F 97.4 F Pulse Rate 68 74 Respiratory Rate 16 16 Blood Pressure 112/68 105/60 Pulse Oximetry 98 98 Oxygen Delivery Method Room Air Room Air BMI result Body Mass Index 18.1 Labs 09/11/25 16:16 09/11/25 16:16 Imaging Radiology Impressions: ITS Impressions Head CT 09/11/25 16:57 IMPRESSION: No acute intracranial abnormality. Electronically signed by: Dirk Ibarra MD 09/11/2025 05:09 PM [facility] [place] Medications Medications Current Medications Acetaminophen (Acetaminophen 325 Mg Tablet) 650 mg PO Q6H PRN PRN Reason: Headache/Pain, Scale 1-10 Last Admin: 09/12/25 20:37 Dose: 650 mg Al Hydroxide/Mg Hydroxide (Magnesium Hydrox/Alum Hydrox 30 Ml Oral.Susp) 30 ml PO Q6H PRN PRN Reason: Heartburn/Nausea Last Admin: 09/12/25 20:37 Dose: 30 ml Hydroxyzine HCl (Hydroxyzine Hcl 25 Mg Tablet) 25 mg PO Q6H PRN PRN Reason: mild anxiety Last Admin: 09/15/25 23:57 Dose: 25 mg Ibuprofen (Ibuprofen 600 Mg Tablet) 600 mg PO Q8H PRN PRN Reason: Headache/Pain, Scale 1-10 Last Admin: 09/13/25 09:58 Dose: 600 mg Magnesium Hydroxide (Milk Of Magnesia 30 Ml Oral.Susp) 30 ml PO DAILY PRN PRN Reason: Constipation Nicotine Polacrilex (Nicotine Polacrilex 2 Mg Gum) 4 mg BUCCAL Q2H PRN PRN Reason: Nicotine Cravings Risperidone (Risperidone 0.5 Mg Tablet) 0.5 mg PO BID PRN PRN Reason: agitation Sertraline HCl (Sertraline Hcl 25 Mg Tablet) 25 mg PO DAILY [facility] Last Admin: 09/16/25 08:47 Dose: 25 mg Trazodone HCl (Trazodone Hcl 50 Mg Tablet) 50 mg PO BEDTIME MRX1 PRN PRN Reason: Insomnia Last Admin: 09/14/25 22:47 Dose: 50 mg Allergies Allergies Allergy/AdvReac Type Severity Reaction Status Date / Time No Known Allergies Allergy Verified 09/11/25 15:23 Assessment & Plan Assessment & Plan (1) 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 Shook is a 20 yo single F with h/o depression and anxiety who was BIBA following a suicide attempt by overdosing on an unknown quantity of aspirin and cold medication. Pt reports that this was precipitated by her bf breaking up with her and telling her he is seeing someone else. She denies current SI and regrets the attempt. She states that she doesn't want to be in the hospital and is admitted on a 12B. While she is here, pt would like to try medication to help with depression, anxiety and insomnia. Plan: Admitted to M3 for safety and stabilization Legal status- 12B 15 min safety checks Milieu therapy Vitals per unit standards Admission H&P from hospitalist pending Start- hydroxyzine 25 mg q 6 hrs prn for anxiety trazodone 50-100 mg qhs prn for insomnia sertraline 25 mg qd for tx of depression/anxiety. 09/13: Pt tolerated the sertraline and prn trazodone and sleep improved last night. She denies SI. ON that will 09/17. T/W will call pt's dad at 10 am tomorrow to review his concerns further. Pt signed consent 09/14: continue current tx plan. 12B expires Wednesday and will d/c Wednesday at 11 unless any acute safety concerns arise 09/15: continue current management and treatment plan. 09/16: continue current management and treatment plan. Reason for continued inpatient stay Substantial Risk for: harm to self and rapid decompensation Time Spent With Patient Time: Total time managing care of this patient today ____ minutes.
[2025-09-16 20:00] VITALS: BP 114/83; PULSE 95; RESP 17; TEMP 36.3; O2SAT 99
[2025-09-17 07:49] VITALS: BP 104/62; PULSE 86; RESP 16; TEMP 36.7; O2SAT 98
--- NOTE | 2025-09-17 10:15 | P.DS_ITS ---
DS: Providers Provider Date of Service: 09/17/25 Date of admission: 09/12/25 12:31 Date of discharge: 09/17/25 Primary care physician: Jean Ang MD Attending physician on admission: Melani Schroeder Attending physician on discharge: Melani Schroeder DS: Diagnosis Discharge Diagnosis (1) Adjustment reaction with mixed disturbance of emotions and conduct: Status: Acute (2) Suicide attempt: Status: Acute (3) Anxiety disorder: Status: Acute DS: Medications Discharge Medications Home Medications: Previous Rx's ?Medication ?Instructions ?Recorded acetaminophen 325 mg tablet 650 mg (2 x 325 mg) PO Q6H PRN 09/17/25 Headache/Pain, Scale 1-10 #0 tabs aluminum-magnesium hydroxide 200 30 ml PO Q6H PRN Hear tburn/Nausea 09/17/25 mg-200 mg/5 mL oral suspension #0 mL (MAG-AL) hydroxyzine HCl 25 mg tablet 25 mg PO BID PRN mild anx iety 30 09/17/25 days #60 tabs ibuprofen 600 mg tablet 600 mg PO Q8H PRN Headache/P ain, 09/17/25 Scale 1-10 #0 tabs sertraline 50 mg tablet See Rx Instructions .Route 1 11/17/24 .COMPLEX 30 days #30 tabs trazodone 50 mg tablet 50 mg PO BEDTIME PRN Insomni a 30 09/17/25 days #30 tabs Mental Status Exam Mental Status Exam Narrative: Appearance: casually dressed, grooming & hygiene wnl, good eye contact. Attitude:Cooperative Speech: Fluent and wnl in regard to volume, tone, prosody Motor activity: Calm and without any tics, tremors or dyskinesias. Mood: 'okay' Affect: appropriate, reactive, brightens up appropriately Thought process: goal directed and without evidence of formal thought disorder Thought content: Denies SI/violent ideation Perception: Denies AH/VH and does not appear to respond to internal stimuli Alert/oriented in all spheres Cognition grossly intact Insight: intact Judgment: fair, improved Data Data Completed and Pending Completed studies during hospitalization [Text1]: 09/11/25 09/11/25 16:16 18:07 WBC 11.9 H RBC 4.44 Hgb 12.6 Hct 36.9 L MCV 83.1 MCH 28.4 MCHC 34.1 RDW 13.0 Plt Count 280 MPV 9.5 Immature Gran % (Auto) 0.3 Neut % (Auto) 89.0 H Lymph % (Auto) 7.6 L [place] % (Auto) 2.7 Eos % (Auto) 0.1 Baso % (Auto) 0.3 Lymph # (Auto) 0.9 L [place] # (Auto) 0.3 Eos # (Auto) 0.0 Baso # (Auto) 0.0 Abs Immat Gran (auto) 0.03 Absolute Neuts (auto) 10.6 H Absolute Nucleated RBC 0.000 Nucleated RBC % (auto) 0.0 Sodium 139 Potassium 3.6 Chloride 106 Carbon Dioxide 21 L Anion Gap 16 BUN 18 H Creatinine 0.90 Estim Creat Clear Calc 78.5 Estimated GFR > 60 Random Glucose 118 H Calcium 9.9 Magnesium 1.8 Total Bilirubin 2.3 H AST 22 ALT 16 Alkaline Phosphatase 52 Total Creatine Kinase 108 Total Protein 7.9 Albumin 5.4 H Lipase 17 Beta HCG, Quant < 2 Urine Color Yellow Urine Appearance Clear Urine pH 5.5 Ur Specific [place] 1.020 Urine Protein 30 (1+) H Urine Glucose (UA) Negative Urine Ketones 80 Urine Blood Trace H Urine Nitrite Negative Ur Leukocyte Esterase Negative Urine RBC 0-2 Urine WBC 6-10 H Ur Squamous Epith Cells 11-20 Urine Bacteria 3+ Hyaline Casts 0-2 Salicylates < 5.0 L Urine Opiates Screen Not Detected Ur Buprenorphine Scrn Not Detected Ur Oxycodone Screen Not Detected Urine Methadone Screen Not Detected Urine Fentanyl Screen Not Detected Acetaminophen 3 Ur Barbiturates Screen Not Detected Ur Phencyclidine Scrn Not Detected Ur Amphetamines Screen Not Detected U Benzodiazepines Scrn Not Detected Urine Cocaine Screen Not Detected U Marijuana (THC) Screen POSITIVE H Ethyl Alcohol < 10 09/11/25 Unknown Urine clean catch - Clean Catch Midstream Urine Culture - Final Imaging Diagnostic Imaging Impressions Head CT 09/11/25 16:57 IMPRESSION: No acute intracranial abnormality. Electronically signed by: Dirk Ibarra MD 09/11/2025 05:09 PM [facility] DS: Summary Hospital Course Hospital Course: Ms. Shook is a 20 yo single F with h/o depression and anxiety who was BIBA following a suicide attempt by overdosing on an unknown quantity of aspirin and cold medication. Pt reports that this was precipitated by her bf breaking up with her and telling her he is seeing someone else. At the time of admission, she denies current SI and regrets the attempt. She states that she doesn't want to be in the hospital and is admitted on a 12B. While she is here, pt would like to try medication to help with depression, anxiety and insomnia. Initial tx plan: Admitted to [facility] for safety and stabilization Legal status- 12B 15 min safety checks Milieu therapy Vitals per unit standard Start- hydroxyzine 25 mg q 6 hrs prn for anxiety trazodone 50-100 mg qhs prn for insomnia sertraline 25 mg qd for tx of depression/anxiety. 09/13: Pt tolerated the sertraline and prn trazodone and sleep improved last night. She denies SI. On 12B that will Wed, 09/17. This customs entry writer spoke with the pt's father during his visit and he expressed concerns about pt caring too much about what others think of her. He noted that she was treated for ADHD when she was younger, asked about re-starting an ADHD med. Pt declined to start another med and stated that stimulants made her feel tired. asked t/w to call tomorrow to discuss his concerns in more detail. 09/14: This customs entry writer spoke w/ the patient's mother, who felt that pt would be safe to be discharged to her parents' home on 09/17, when the 12B expires. She reports pt gets really down after break-ups. She stated that she and her were home when pt overdosed. Pt had the water running in the bathroom and mom thought she was in the shower. mom went to use the bathroom and noticed pt wasn't answering and she checked on her. Pt was unconscious and pt's parents called EMS. Pt denied SI, violent ideation, AH/VH throughout her admission. She expressed regret about the overdose consistently during her hospitalization. She did not have any behavioral issues. She reported good sleep and appetite. Status at Discharge Overall status at discharge: patient is back to baseline Time Spent with Patient Time attestation: Total time managing care of this patient today ____ minutes. Time spent: Less than 30 minutes Discharge Plan Discharge Anticipated Discharge Date/Time: 09/17/25 11:00 Patient Disposition: Home, Self-Care Discharge Diagnosis: Adjustment reaction with mixed disturbance of emotions and conduct Anxiety disorder Referrals: Therapy & Psychiatry [Other] - 1 Week Referral Note: *You can present to the clinic above, Wednesday through Wednesday during the hours of 8am and 8pm, in order to obtain outpatient mental health providers. Therapy & Psychiatry [Other] - 1 Week Referral Note: *You can present to the clinic above, Wednesday through Wednesday during the hours of 10am and 12pm, in order to obtain outpatient mental health providers. Jean Ang MD [Primary Care Provider, Internal Medicine] - 1 Week Referral Note: 09-17-25 Your primary care provider states that you have not established care with them as of yet. You will need to contact them directly to set up your new patient appt and provide all your information to them. Discharge Medications: New hydroxyzine HCl 25 mg Tablet 25 mg PO BID PRN (Reason: mild anxiety) 30 Days Qty: 60 0RF acetaminophen 325 mg Tablet 650 mg PO Q6H PRN (Reason: Headache/Pain, Scale 1-10) Qty: 0 0RF ibuprofen 600 mg Tablet 600 mg PO Q8H PRN (Reason: Headache/Pain, Scale 1-10) Qty: 0 0RF sertraline 50 mg tablet See Rx Instructions .ROUTE .COMPLEX 30 Days Qty: 30 0RF Rx Instructions: Take 1/2 tab po qd x 4 days then take 1 tab po qd trazodone 50 mg Tablet 50 mg PO BEDTIME PRN (Reason: Insomnia) 30 Days Qty: 30 0RF MAG-AL 200-200 mg/5 mL Suspension 30 ml PO Q6H PRN (Reason: Heartburn/Nausea) Qty: 0 0RF Discharge Orders: Discharge Order (Routine); Ordered 09/17/25 Ordered By: Melani Schroeder Diet: Regular diet Activity on Discharge: No Restrictions Stand Alone Forms: Patient Portal Discharge page, Community Support Print Language: Upper Sorbian Care Plan Goals: Maintain safe behaviors Practice coping skills Take medications as prescribed Maintain regular follow-ups with your outpatient providers Health Concerns: Mood stability and behaviors Plan of Treatment: Follow up with your psychiatric provider, PCP and other outpatient providers Take your medication as prescribed Assessment: Risk assessment at the time of discharge: Patient was interviewed on the day of discharge and found to be fully oriented, without any SI or violent ideation. Pt has improved insight and judgment and plans to continue treatment Pt is not at imminent risk of harm to self or others and has a safety plan that includes presenting to the closest ER or calling 911 if feeling unsafe. Pt has been observed closely by unit staff and has not engaged in any behaviors that suggest dangerous to self or others and has demonstrated appropriate bheaviors and impulse control. Discharge Date/Time: 09/17/25 11:03
== END 2025-09-17 11:03 | disposition home or self-care (01) | DRG 755 ==
LOC: HO.ED 18:41 → HO.PADLT16 09-12 12:37
PROVIDERS: Physician Assistant Medical; Admitting Provider Psychiatry & Neurology Psychiatry; Emergency Provider Emergency Medicine; PCP Internal Medicine; Visit Provider Psychiatry & Neurology Psychiatry
DX: F43.25 Adjustment disorder with mixed disturbance of emotions and conduct (principal); F41.9 Anxiety disorder, unspecified; T39.012A Poisoning by aspirin, intentional self-harm, initial encounter; T39.1X2A Poisoning by 4-Aminophenol derivatives, intentional self-harm, initial encounter; Z79.899 Other long term (current) drug therapy
CPT/HCPCS: 36415; 70450; 80053; 80143; 80179; 80307; 81001; 82550; 83690; 83735; 84702; 85025; 87086; 93005; 99285; S9485

== ENCOUNTER → 2025-09-11 15:36 | Outpatient (BNV) | payer OTHER, SELFPAY | PROVIDERS: Emergency Provider Emergency Medicine; PCP Internal Medicine; Visit Provider Radiology Diagnostic Radiology | DX: Z03.89 Encounter for observation for other suspected diseases and conditions ruled out (principal) | CPT/HCPCS: 70450 ==

== ENCOUNTER → 2025-09-11 15:36 | Outpatient (BNV) | payer OTHER, SELFPAY | PROVIDERS: Emergency Provider Emergency Medicine; PCP Internal Medicine; Visit Provider Internal Medicine Cardiovascular Disease | DX: T50.901A Poisoning by unspecified drugs, medicaments and biological substances, accidental (unintentional), initial encounter (principal) | CPT/HCPCS: 93010 ==

== ENCOUNTER → 2025-09-12 12:31 | Outpatient (BNV) | payer OTHER, SELFPAY | PROVIDERS: Admitting Provider Psychiatry & Neurology Psychiatry; Emergency Provider Emergency Medicine; PCP Internal Medicine; Visit Provider Nurse Practitioner Family | DX: T50.902A Poisoning by unspecified drugs, medicaments and biological substances, intentional self-harm, initial encounter (principal) | CPT/HCPCS: 99221 ==

== ENCOUNTER → 2025-09-12 12:31 | Outpatient (BNV) | payer OTHER, SELFPAY | PROVIDERS: Admitting Provider Psychiatry & Neurology Psychiatry; Emergency Provider Emergency Medicine; PCP Internal Medicine; Visit Provider Psychiatry & Neurology Psychiatry | DX: F43.25 Adjustment disorder with mixed disturbance of emotions and conduct (principal); T14.91XA Suicide attempt, initial encounter; F41.9 Anxiety disorder, unspecified | CPT/HCPCS: 90792; 99499 ==